=== PATIENT | female | born 1950 | race Caucasian/White ===

== ENCOUNTER → 2018-07-12 | Outpatient (CLI) | payer MEDICARE, MEDICAID | LOC: M ONCR 13:46 | DX: C54.1 Malignant neoplasm of endometrium (principal) | CPT/HCPCS: G0463 ==

== ENCOUNTER → 2018-07-19 | Outpatient (CLI) | payer MEDICARE, MEDICAID | LOC: M PLARAD 08:50 | DX: C54.1 Malignant neoplasm of endometrium (principal) | CPT/HCPCS: 78815 ==

== ENCOUNTER → 2018-08-08 | Outpatient (RCR) | payer MEDICARE, MEDICAID ==
--- NOTE | 2018-07-26 08:00 | RADONC ---
RADIATION ONCOLOGY PROGRESS NOTE DATE: 07/25/2018 CHART NUMBER: [id number] Ms. Blanton is presently at a dose of 1080 cGy to her pelvis and is tolerating treatments quite well at this point with no complaints related to her radiation therapy. She is having no breast or bone pain. REVIEW OF SYSTEMS: The patient's review of systems is noncontributory. She denies nausea, vomiting, fevers, chills, night sweats, diplopia, headaches, anxiety or depression, anorexia, weight loss, visual disturbances, chest pain, urinary or bowel difficulties, bone pain, or neurological problems. PHYSICAL EXAMINATION: The patient's skin is in good condition with no evidence of moist or dry desquamation. The remainder of her physical exam remains unchanged. Ms. Blanton is tolerating treatments quite well and radiation will continue as scheduled.
--- NOTE | 2018-08-05 12:37 | RADONC ---
RADIATION ONCOLOGY PROGRESS NOTE DATE: 08/03/2018 CHART #: [id number] Mrs. Blanton with a diagnosis of endometrial adenocarcinoma who is currently receiving local regional radiotherapy to the pelvis and her dose to date is 1800 cGy of a proposed 4500 cGy. She denies any nausea, vomiting, diarrhea, dysuria, hematuria or significant blood per rectum. Her energy level is such that she is able to maintain many day-to-day activities without any alteration of her lifestyle. She has some minimal skin irritation within the inguinal folds. The remainder of the physical examination is noncontributory as she denies any anxiety, depression, anorexia, weight loss, or visual disturbances. Physical examination reveals some focal hyperpigmentation with erythema within the inguinal fold areas. Although there is no evidence of moist desquamation at this time, it looks as though the skin is significantly irritated within the deep folds. The remainder of the physical examination is unchanged. I have instructed the patient to obtain some antifungal cream at her local pharmacy and should she develop any episodes of diarrhea in the future she might want to consider taking a small dose of Imodium to ameliorate any such symptoms. Treatments will continue.
--- NOTE | 2018-08-10 14:20 | RADONC ---
RADIATION ONCOLOGY PROGRESS NOTE DATE: 08/08/2018 CHART NUMBER: [id number] PROGRESS NOTE: Ms. Santos is presently at a dose of 2160 cGy to her pelvis and is tolerating treatments quite well at this point with no significant difficulties related to her radiation therapy other than some skin tenderness. REVIEW OF SYSTEMS: The patient's review of systems is positive for skin tenderness but is otherwise noncontributory. The patient's review of systems is noncontributory. Denies nausea, vomiting, fevers, chills, night sweats, diplopia, headaches, anxiety or depression, anorexia, weight loss, visual disturbances, chest pain, urinary or bowel difficulties, bone pain, or neurological problems. PHYSICAL EXAMINATION: The patient's skin shows some erythema and tanning present but overall is in generally good condition with no evidence of moist or dry desquamation. The remainder of her physical exam remains unchanged. Ms. Blanton is tolerating treatments quite well and radiation will continue as scheduled.
== END ==
LOC: M ONCR 07-12 15:00
PROVIDERS: ATTEND Radiology Radiation Oncology
DX: C54.1 Malignant neoplasm of endometrium (principal)

== ENCOUNTER 2018-08-29 13:59 | Outpatient (RCR) | payer MEDICARE, MEDICAID ==
--- NOTE | 2018-08-23 07:23 | RADONC ---
RADIATION ONCOLOGY PROGRESS NOTE DATE: 08/22/2018 CHART NUMBER: [id number] Ms. Blanton is presently at a dose of 3600 cGy to her pelvis and is tolerating treatments quite well at this point with no complaints related to her radiation therapy. She is having no significant urinary or bowel difficulties. No bone pain. The patient's review of systems is noncontributory. Denies nausea, vomiting, fevers, chills, night sweats, diplopia, headaches, anxiety or depression, anorexia, weight loss, visual disturbances, chest pain, urinary or bowel difficulties, bone pain, or neurological problems. PHYSICAL EXAMINATION The patient's skin is in good condition with no evidence of moist or dry desquamation. The remainder of her physical exam remains unchanged. Ms. Blanton is tolerating treatments quite well and radiation will continue as scheduled.
--- NOTE | 2018-08-29 16:26 | RADONC ---
RADIATION ONCOLOGY PROGRESS NOTE DATE: 08/29/2018 CHART NUMBER: [id number] PROGRESS NOTE: Ms. Blanton is presently a dose of 4320 cGy to her endometrium and is tolerating treatments quite well at this point with no complaints related to her radiation therapy. She is having no significant urinary or bowel difficulties. No bone pain. REVIEW OF SYSTEMS: The patient's review of systems is noncontributory. Denies nausea, vomiting, fevers, chills, night sweats, diplopia, headaches, anxiety or depression, anorexia, weight loss, visual disturbances, chest pain, urinary or bowel difficulties, bone pain, or neurological problems. PHYSICAL EXAMINATION: The patient's skin is in good condition with no evidence of moist or dry desquamation. The remainder of her physical exam remains unchanged. Ms. Blanton is tolerating treatments quite well. I will be evaluating her overall plan and radiation completion may be today. [facility]
--- NOTE | 2018-08-30 11:54 | RADONC ---
RADIATION ONCOLOGY TREATMENT SUMMARY DATE: 08/29/2018 CHART NUMBER: [id number]. DIAGNOSIS: Endometrial carcinoma. STAGE: Stage III, T3N0M0. ECOG PERFORMANCE STATUS: 0. TREATMENT SUMMARY: Ms. Blanton is a very pleasant 67-year-old white female with the diagnosis what appears to be a well-differentiated endometrial adenocarcinoma, stage III, T3N0M0, who has initiated external beam radiation therapy in [place] and presented to us for continuation of her radiation treatments closer to home. We treated the patient to her pelvis for a total dose of 4320 cGy delivered in 24 fractions of 180 cGy each over 42 elapsed days from 07/18/2018 through 08/29/2018. The patient's pelvis was treated on a linear accelerator utilizing a 15 MV photon beam via 3-D conformal technique with anterior, posterior, right and left lateral madrid. The patient had received three treatments of 180 cGy as a boost in [place] prior to initiation of treatment, bringing her to a total dose of 4860 cGy in 27 fractions of 180 cGy each. We had initially written a prescription for 25 treatments here, but after combining the treatment plans for the doses given at [facility] as well as our own, decided to stop the overall dose of 4860 cGy rather than going to 5040 cGy in order to maintain the small bowel within its tolerance limits. Ms. Blanton tolerated her treatments quite well with no difficulties related to her radiation therapy. The patient is scheduled to see me again in 1 month for further followup. She will also continue to be followed by her other physicians as well. cc: MD Renzo Whitehead MD Jocelyn Beane, MD Michael D. Mix, MD
== END 2018-09-08 ==
LOC: M ONCR 13:59
PROVIDERS: ATTEND Radiology Radiation Oncology
DX: C54.1 Malignant neoplasm of endometrium (principal)

== ENCOUNTER → 2018-10-05 | Outpatient (CLI) | payer MEDICARE, MEDICAID ==
--- NOTE | 2018-10-10 10:09 | RADONC ---
RADIATION ONCOLOGY FOLLOWUP NOTE DATE: 10/05/2018 CHART NUMBER: [id number]. DIAGNOSIS: Endometrial carcinoma. STAGE: Stage IV, [id number]. ECOG PERFORMANCE STATUS: 0. FOLLOWUP NOTE: Ms. Blanton is a very pleasant 67-year-old white female with the diagnosis of what appears to be a stage IV, [id number], well-differentiated endometrial adenocarcinoma, who is presenting to us today for routine followup visit 1 month post completion of palliative radiation therapy to her pelvis in order to alleviate bleeding and discomfort. The patient has done well since the completion of her radiation of her pelvic radiation and reports that she has had no further bleeding or discomfort. She also reports that she is being seen in Dr. Hart's office by Casandra Gruber, nurse practitioner for ENROLLED NURSE exams that will be scheduled every 3 months. The patient's review of systems is noncontributory. Denies nausea, vomiting, fevers, chills, night sweats, diplopia, headaches, anxiety or depression, anorexia, weight loss, visual disturbances, chest pain, urinary or bowel difficulties, bone pain, or neurological problems. PHYSICAL EXAMINATION: The patient is a well-developed, well-nourished female in no acute distress. HEENT exam is normocephalic, atraumatic. Extraocular movements are intact. There is no palpable cervical, supraclavicular, infraclavicular, axillary, or inguinal lymphadenopathy present. Lungs are clear to auscultation and percussion. Heart has a regular rate and rhythm. Abdomen is benign with no hepatosplenomegaly, masses, or tenderness. Breast examination reveals no masses or discharge bilaterally. Skeletal examination reveals no tenderness to pressure or percussion of the bony skeleton. Extremities reveal no clubbing, cyanosis, or edema. Neurologic exam is grossly intact, as is the remainder of the physical examination. ENROLLED NURSE examination was deferred. ASSESSMENT: Ms. Blanton was initially seen by me having started palliative radiation therapy in [place] for a large endometrial / cervical mass. She was deemed not to be a surgical candidate at that time by Dr. Tran. Initially, she was thought to have a stage III, T3N0M0 endometrial adenocarcinoma. There was discussion of palliative radiation therapy versus potentially definitive radiation therapy at that time. She was initially seen by me in 07/12/2018. On 07/19/2018 a PET/CT was done and did confirm a left parotid region hypermetabolic lymph node with SUV value 14.2. There were also several enlarged lymph nodes which were hypermetabolic in the abdomen, portocaval and periportal lymph node region. These were in addition to her large hypermetabolic pelvic mass. In light of this, clearly this case could no longer be considered definitive and we completed out palliative radiation therapy to the pelvis. The patient is now 4 weeks post completion of therapy, and I am placing her on our tumor board scheduled for discussion of where we should go from here. In addition, I am setting up the patient for a medical oncology consultation to see whether or not our medical oncologist thinks she may benefit from any further intervention. At this time, we appear to have a window of local control but unfortunately the amount of radiation was limited by normal structures. Indeed, we were limited by the small bowel dose. It was kept within its tolerance levels but no further radiation can be delivered safely. I have encouraged this patient to continue her followup with her other physicians, including Dr. Tran as well. I await the expert opinion of our medical oncologists see whether or not they can be of any assistance to this very pleasant and unfortunate woman. [facility]
== END ==
LOC: M ONCR 14:22
PROVIDERS: ATTEND Radiology Radiation Oncology
DX: C54.1 Malignant neoplasm of endometrium (principal)

== ENCOUNTER → 2018-10-26 | Outpatient (CLI) | payer MEDICARE, MEDICAID ==
[~2018-10-26] MED LIST: EZET10TA PO; FERR325T3 PO; GASTROGRAFIN SOLUTION 30ML (Q9963) As Ordered ONE; ISOVUE-370 76% 125ML VIAL (Q9967 PER ML) As Ordered ONE; TOPR25TA13 PO; VITA500T PO
--- NOTE | 2018-10-27 08:29 | REP ---
Clinical: Endometrial carcinoma for restaging. Technique: Axial contrast enhanced images from the thoracic inlet to the upper abdomen with coronal and sagittal re-formations using 100 ml Isovue 370 intravenous contrast material. Findings: Lung madrid demonstrate chronic age-related interstitial changes along with few scattered small calcified granulomata. No soft tissue nodules, mass or consolidation appreciated to suggest metastatic disease. No consolidation. No effusion. No pneumothorax. Tracheobronchial tree is patent. No significant adenopathy identified. Mediastinum demonstrates relatively normal thoracic aorta and heart/pericardium. No aortic aneurysm, cardiomegaly, or pericardial effusion. Surrounding musculoskeletal structures demonstrate age-related changes without focal osseous abnormality. Impression: 1. Chronic-appearing changes. 2. No evidence for acute mediastinal or pleuroparenchymal process. 3. No evidence for metastatic disease. Electronically Signed by Oscar Albright MD 10/27/2018 08:21 A
--- NOTE | 2018-10-27 08:38 | REP ---
Clinical: History of endometrial carcinoma for restaging. Technique: Axial contrast enhanced images from the lung bases to the pubic symphysis using oral (per protocol) and 100 ml Isovue 370 intravenous contrast material with coronal and sagittal re-formations. Comparison: 05/13/2018. Findings: Please refer to chest CT for lung base evaluation. Liver, spleen, pancreas, bilateral adrenal glands and kidneys are normal. Cholelithiasis noted without acute cholecystitis. Peripancreatic and chris hepatis lymph nodes are identified and measure up to 2.7 cm diameter and appear relatively unchanged. The enteric system is without obstruction or acute inflammatory process. Scattered diverticula noted without acute diverticulitis. Pelvis demonstrates collapsed bladder. The uterus appears heterogeneous and the previously identified cervical/lower uterine segment fluid/mass has considerably decreased in size currently measuring approximately 3.8 cm maximal diameter and previously measuring approximately 7.6 cm maximal diameter at the same level. No pelvic fluid or ascites. No obvious, significant retroperitoneal or pelvic adenopathy is appreciated. No free air. The abdominal aorta and vasculature grossly normal. Osseous structures demonstrate age-related degenerative changes without focal osseous abnormality. Impression: 1. Previously identified mass/fluid collection involving the lower uterine segment and cervix is considerably decreased in size. 2. Cholelithiasis. 3. Peripancreatic and chris hepatis lymph nodes up to 2.7 cm remains stable. 4. No further acute abdominopelvic pathology appreciated. Specifically, no focal mass lesion, focal inflammatory stranding. Electronically Signed by Oscar Albright MD 10/27/2018 08:29 A
== END ==
LOC: M RAD 15:32
PROVIDERS: ATTEND Internal Medicine Medical Oncology
DX: C54.1 Malignant neoplasm of endometrium (principal); K80.20 Calculus of gallbladder without cholecystitis without obstruction
CPT/HCPCS: 71260; 74177; Q9963; Q9967

== ENCOUNTER → 2018-11-14 | Outpatient (CLI) | payer MEDICARE, MEDICAID ==
[~2018-11-14] MED LIST changes: -GASTROGRAFIN SOLUTION 30ML (Q9963) As Ordered ONE; -ISOVUE-370 76% 125ML VIAL (Q9967 PER ML) As Ordered ONE; +LIDOCAINE 1% MDV 20ML VIAL As Ordered ONE; +ONDA-196 PO; +PROC10TA4 PO; +TOPR25TA PO; -TOPR25TA13 PO; +VITA200016 PO
--- NOTE | 2018-11-14 17:34 | REP ---
ULTRASOUND-GUIDED LEFT NECK LYMPH NODE BIOPSY The procedure was performed under the direct supervision of Dr. Winkler. The patient has a history of a markedly hypermetabolic lymph node in the left neck along the anterior inferior edge of the parotid gland seen on a previous PET scan dated 07/19/2018. The risks and benefits of the procedure were explained to the patient and informed consent was obtained. The left neck lymph node was localized using ultrasound guidance. The skin was prepped and draped in a sterile fashion. 1% lidocaine was used as a local anesthetic. Using ultrasound guidance a 19/20 gauge coaxial needle biopsy system was inserted and advanced into the lymph node. Six core biopsy samples were obtained and sent to lab. The patient tolerated the procedure well and there were no immediate complications. After the appropriate amount of monitored convalescence the patient was discharged from the department. Reviewed by TOMMY Mary 11/14/2018 04:21 P Electronically Signed by Jake Winkler MD 11/14/2018 05:25 P
--- NOTE | 2018-11-15 13:39 | REP ---
Clinical: Hypermetabolic lymph node by recent PET CT. Technique: Real time courtney scale and color evaluation using linear high frequency transducer. Findings: A hypoechoic, enlarged presumed lymph node is identified in the left cervical chain measuring 1.7 x 1.4 x 2.3 cm. The remainder of the bilateral jugular and cervical chain lymph nodes are normal in size measuring up to 8 x 4 x 7 mm in the left and 10 x 7 x 10 mm on the right. Impression: Solitary pathologic appearing left cervical chain lymph node. Electronically Signed by Oscar Albright MD 11/15/2018 01:30 P
== END ==
LOC: M RADPRO 09:52
PROVIDERS: ATTEND Internal Medicine Medical Oncology
DX: R59.0 Localized enlarged lymph nodes (principal)

== ENCOUNTER → 2019-01-16 | Outpatient (CLI) | payer MEDICARE, MEDICAID ==
[~2019-01-16] MED LIST changes: +AMOX875T PO; +BUPIVACAINE HCL 0.5% 10 ML VIAL As Ordered ONE; +CLEO300C2 PO; -EZET10TA PO; +EZET10TA21 PO; -LIDOCAINE 1% MDV 20ML VIAL As Ordered ONE; +LIDOCAINE 2% MDV 20 ML VIAL As Ordered ONE; +ceFAZolin 1GM INJ (J0690 PER 500MG) As Ordered ONE
--- NOTE | 2019-01-18 11:58 | ROOPDOC ---
[facility] Report Of Operation Report of Operation DATE OF PROCEDURE: 01/16/2019 PREOPERATIVE DIAGNOSIS: Endometrial cancer requiring central venous access for chemotherapy. POSTOPERATIVE DIAGNOSIS: Endometrial cancer requiring central venous access for chemotherapy. PROCEDURE: Ultrasound guided right internal jugular vein cannulation. Fluoroscopic guided right internal jugular vein tunneled central venous catheter with subcutaneous port placement with placement of a power injectable [employer] [place] Power Port with 26 centimeter length catheter. SURGEON: Dr. Patty Wilson M.D. LEAD TINNER: Fouzia Kirkpatrick ANESTHESIA: Local with 20 mL of 2% lidocaine mixed with 0.5% Marcaine. ANTIBIOTICS: 2 g of Ancef FLUOROSCOPY TIME: 0.4 minutes. CONTRAST: None. ESTIMATED BLOOD LOSS: 15 mL. IV FLUID: 90 mL. COMPLICATIONS: None. DRAINS: None. SPECIMENS: None. IMPLANTS: Right internal jugular vein tunneled central venous catheter with subcutaneous port placement using a [employer] [place] Power Port which is power injectable. INDICATION: Patient is a 68-year-old female with endometrial cancer who requires central venous access for chemotherapy instillation. Patient will undergo placement of a right tunneled central venous catheter with subcutaneous port. Procedure was described and explained to the patient in detail including drawing of pictures showing the procedure and anatomy associated with insertion of the tunneled central venous catheter was subcutaneous port. Risks, benefits, and alternative treatment options were discussed with the patient. Alternative treatment options included, but were not limited to, no intervention. Benefits included, but were not limited to, access for chemotherapy infusion centrally, avoiding recurrent venous cannulations , IV placements and sclerosis of peripheral veins. Risks included, but were not limited to, infection, bleeding, pneumothorax, hemothorax, possible need for further open surgical intervention, renal failure requiring hemodialysis, failure of the tunneled central venous catheter with subcutaneous port to function requiring evaluation, revision and/or replacement, adverse and/or allergic reaction to the sedation medications and/or local anesthetics, anesthetic and sedation complication, possible need for transfusion of blood products, allergic reaction and/or complication from the prepping and draping materials, bruising, scarring, cerebrovascular accident, myocardial infarction, pulmonary embolus, deep venous thrombosis, poor satisfaction, poor results, poor outcome, loss of limb and loss of life. Risks of not performing the port insertion included but were not limited to inability to gain access for chemotherapy, inability to gain access for blood draws and laboratory evaluation, sclerosis and thrombophlebitis of peripheral veins and pain associated with continued peripheral cannulations. Patient's q uestions were answered. Patient voices understanding of these risks, benefits, and alternative treatment options. Patient voices acceptance of the risks associated with placement of a central venous tunneled catheter with subcutaneous port placement and consents to proceed with tunneled central venous catheter with subcutaneous port placement. No guarantees or promises were made to the patient regarding the results or outcome of the procedure. DESCRIPTION OF PROCEDURE: Patient was taken to the angiography suite, placed supine on the angiography room table, and prepped and draped in a standard surgical fashion. A time-out was conducted by myself and the team members involved in the procedure, confirming the correct procedure, patient, and laterality. Ultrasound was then used to evaluate the right internal jugular vein, which was noted to be easily compressible, widely patent, and free of thrombus. Ultrasound was then used to guide cannulation of the right internal jugular vein with a micropuncture needle with real-time concurrent visualization of the entry of the needle into the right internal jugular vein with a hardcopy image preserved. The skin overlying the right internal jugular vein was anesthetized with 2% lidocaine mixed with 0.5% Marcaine prior to cannulation. Once the right internal jugular vein was cannulated, the micropuncture wire was advanced through the micropuncture needle, which was up-sized to a micropuncture sheath. A J wire was advanced through the micropuncture sheath. The right internal jugular vein was then dilated under fluoroscopic guidance, and a #8-[place] introducer sheath was positioned through the right internal jugular vein into the superior vena cava. The wire was removed, and the #8-[place] single lumen catheter, which had been tunneled from a puncture wound in the right chest and brought out at the puncture wound at the right internal jugular vein entry site, was advanced through the introducer sheath under fluoroscopic guidance. The introducer sheath was then removed, and the catheter was positioned with the tip in the superior vena cava/right atrial junction under fluoroscopic guidance. The catheter was cut to a length of 26 cm and attached to the port. A pocket was created in the right chest after anesthetizing the overlying tissue with 2% lidocaine mixed with 0.5% Marcaine. The port was placed in the pocket and cannulated using an access needle. The port was noted to aspirate and flush easily and then was flushed with heparinized saline. The incision in the chest was closed using # 4-0 Monocryl suture in inverted interrupted fashion. The puncture wound in the right neck was closed using a #4-0 Monocryl in inverted interrupted fashion. Steri-Strips and dressings were applied. Patient tolerated the procedure well. All instrument, sponge, and needle counts were correct at the end of the case. There were no complications. Dr. Wilson was present for and directed the entire case. Patient was transferred to the recovery area and subsequently discharged in stable condition. The tunneled central venous catheter with subcutaneous port is stable for use for access. RADIOLOGIC SUPERVISION AND INTERPRETATION: The ultrasound showed the right internal jugular vein to be easily compressible, widely patent, and free of thrombus. Ultrasound was used to guide cannulation of the right internal jugular vein with real-time concurrent visualization of the entry of the needle into the right internal jugular vein. The right internal jugular vein was then dilated under fluoroscopic guidance with a #8-[place] introducer sheath placed under fluoroscopic guidance. The 8 [place] single lumen catheter was advanced through the introducer sheath positioned with the tip in the superior vena/right atrial junction using fluoroscopic guidance with final fluoroscopic image showing the catheter and port to be in good position and good alignment with the tip in the superior vena cava/right atrial junction with no pneumo- or hemothorax noted. The tunneled central venous catheter with subcutaneous port is stable for use. Jonathon Wilson MD Jan 18, 2019 11:58
== END | disposition home or self-care (01) ==
LOC: M IRPRO 09:02
PROVIDERS: ATTEND Nurse Practitioner Family
DX: C54.1 Malignant neoplasm of endometrium (principal)
CPT/HCPCS: 36561; 76937; 77001; C1788; C1894; J0690

== ENCOUNTER → 2019-04-12 | Outpatient (CLI) | payer MEDICARE, MEDICAID ==
[~2019-04-12] MED LIST changes: -BUPIVACAINE HCL 0.5% 10 ML VIAL As Ordered ONE; +EMLA CREAM 5GM (LIDOCAINE/PRILOCAINE) As Ordered ONE; +GASTROGRAFIN SOLUTION 30ML (Q9963) As Ordered ONE; +ISOVUE-370 76% 100ML VIAL (Q9967) As Ordered ONE; -LIDOCAINE 2% MDV 20 ML VIAL As Ordered ONE; -ceFAZolin 1GM INJ (J0690 PER 500MG) As Ordered ONE
--- NOTE | 2019-04-12 10:32 | REP ---
Clinical: Endometrial cancer for restaging. Technique: Axial contrast enhanced images from the thoracic inlet to the upper abdomen with coronal and sagittal re-formations using 100 ml Isovue 370 intravenous contrast material. Comparison: 10/26/2018. Findings: Lung [place] demonstrate mild chronic age-related interstitial changes along with left upper lobe calcified granuloma. No consolidation, effusion, significant nodule or mass lesion. No adenopathy. Tracheobronchial tree is patent. The mediastinum demonstrates a few calcified mediastinal / left hilar lymph nodes. Thoracic aorta without aneurysm or dissection. No cardiomegaly. No pericardial effusion. Musculoskeletal structures demonstrate age-related changes without focal osseous abnormality. Impression: Mild chronic changes. No evidence for acute mediastinal or pleuroparenchymal process. No evidence for metastatic disease. Electronically Signed by Oscar Albright MD 04/12/2019 10:24 A
--- NOTE | 2019-04-12 10:39 | REP ---
Clinical: Endometrial carcinoma for restaging. Technique: Axial contrast enhanced images from the lung bases to the pubic symphysis using oral (per protocol) and 100 ml Isovue 370 intravenous contrast material with coronal and sagittal re-formations. Comparison: 10/26/2018. Findings: Liver, spleen, pancreas, bilateral adrenal glands and kidneys are normal. Cholelithiasis noted without evidence for acute cholecystitis. Prominent peripancreatic and chris hepatis lymph nodes again measuring up to approximately 2.4 cm remains stable. The enteric system is without obstruction or acute inflammatory process. Pelvis demonstrates normal bladder. Somewhat heterogeneous appearance to the fundal portion of the uterus and adjacent adnexa is appreciated but appears relatively similar to prior examination. Few subcentimeter pelvic sidewall lymph nodes are again identified and unchanged. No ascites. No new intraperitoneal or retroperitoneal adenopathy. No free air. Abdominal aorta and vasculature without aneurysm or dissection. No obvious mass lesion or metastases identified. Musculoskeletal structures demonstrate degenerative changes without focal abnormality. Impression: 1. Cholelithiasis. 2. Mildly prominent heterogeneous appearance to the fundal portion of the uterus and adjacent adnexa similar to prior examination is nonspecific. Pelvic ultrasound may be warranted for follow-up. 3. No ascites, new adenopathy, focal inflammatory changes, or evidence for mass/metastatic disease. Electronically Signed by Oscar Albright MD 04/12/2019 10:30 A
== END ==
LOC: M RAD 08:26
PROVIDERS: ATTEND Nurse Practitioner Family
DX: C54.1 Malignant neoplasm of endometrium (principal); J84.10 Pulmonary fibrosis, unspecified; K80.20 Calculus of gallbladder without cholecystitis without obstruction
CPT/HCPCS: 71260; 74177; Q9963; Q9967

== ENCOUNTER 2019-04-17 07:49 | Outpatient (RCR) | payer MEDICARE, MEDICAID ==
[2018-10-18 14:28] VITALS: BP 123/85
[2018-10-18 15:27] LABS: HEMATOCRIT 46.5 % (36.0-47.0); HEMOGLOBIN 14.7 g/dl (12.0-15.5); LYMPH % 12.3 % (24.0-44.0); MEAN CORPUSCULAR HGB CONC 31.6 g/dl (32.0-36.5); MEAN CORPUSCULAR VOLUME 94.8 fl (80.0-96.0); NEUTROPHILS # 7.8 10^3/uL (1.8-7.7); NEUTROPHILS % 79.6 % (36.0-66.0); RED BLOOD COUNT 4.9 10^6/uL (4.00-5.40); WHITE BLOOD COUNT 9.8 10^3/uL (4.0-10.0)
[2018-10-18 15:55] LABS: ALBUMIN 4.1 GM/DL (3.5-5.2); BLOOD UREA NITROGEN 17 MG/DL (6-20); CALCIUM LEVEL 9.8 MG/DL (8.5-10.2); CARBON DIOXIDE LEVEL 29 MEQ/L (23-31); CHLORIDE LEVEL 101 MMOL/L (98-107); CREATININE FOR GFR 0.92 MG/DL (0.60-1.10); GLOMERULAR FILTRATION RATE > 60.0 (>45); GLUCOSE, FASTING 113 MG/DL (70-105); POTASSIUM SERUM 4.8 MMOL/L (3.5-5.1); SODIUM LEVEL 137 MMOL/L (136-145); TOTAL PROTEIN 7.5 GM/DL (6.4-8.3)
--- NOTE | 2018-10-23 10:11 | MEDONC ---
MEDICAL ONCOLOGY INITIAL VISIT DATE OF SERVICE: 10/18/2018 DIAGNOSIS: Mitra Santos is a 67-year-old woman with clinically advanced well differentiated endometrial adenocarcinoma, now status post definitive local radiation. Deemed not a surgical candidate. HISTORY OF PRESENT ILLNESS: Mitra at baseline is retired, never smoker, woman, with [id number] medical problems, who presented to the [facility] Room in early May 2018 with 2 weeks of vaginal bleeding and severe anemia requiring 2-unit red blood cell transfusion. At that time, clinical exam revealed a large fungating cervical mass, and abdomen and pelvis CT showed a 7.7 x 7 x 6.3 cm bulky cervical mass with borderline para-aortic lymph nodes up to 1.3 cm and a 1.5 sinus meter periportal node. She was transferred to [facility], where she was evaluated with CT abdomen and pelvis finding the above; chest CT was negative. She underwent exam under anesthesia and biopsy, which showed well differentiated adenocarcinoma most consistent with endometrial origin. Biopsies involves both cervix and vagina. ER and FL were positive. She was discharged home after EUF and referred outpatient to Rei Tran MD, who she saw 07/04/2018. Due to severe bleeding after exam, she was admitted to [facility]. There it was recommended that she undergo palliative/therapeutic radiation. This was started at [place] under Dr. Gastelum, and her radiation care was transferred to Dr. Conroy. 07/19/2019 PET showed a 7.5 cm cervical mass with SUV22; portacaval/periaortic lymph nodes with SUV borderline at 3; in a left parotid gland 2.2-cm mass/nodule SUV14. She had been deemed not a surgical candidate by Dr. Tran; and between 07/18/2018 and 08/29/2018 completed 4860 cGy radiation. Today, Mitra is unaccompanied. She says the bleeding has largely stopped since radiation. She denies pain. She has occasional slight bleeding in a pad. She has no lower abdominal pain. She denies unintended weight loss, loss of appetite, leg cramping, swelling, fevers, chills, shortness of breath. PAST MEDICAL HISTORY: Type 2 diabetes, not currently on active medication. Hypertension. Vitamin D deficiency. PAST SURGICAL HISTORY: EUF cervical and vaginal biopsies as described. FAMILY HISTORY: Is negative for malignancies except her father who had laryngeal cancer. No colon or endometrial cancer in the family. SOCIAL HISTORY: The patient is a never smoker. Denies alcohol. Is retired from working at [employer]. She grew up and lives in [place] with her brother. ALLERGIES: No known drug allergies. MEDICATIONS: Ascorbic acid 500 mg b.i.d., ezetimibe 10 mg daily, ferrous sulfate 325 mg daily, metoprolol 25 mg daily. Twelve-system written review is positive only for occasional urinary incontinence. Remainder of twelve-system review negative. PHYSICAL EXAMINATION: The patient is an overweight, somewhat ill kempt, very pleasant woman. Minimal detail when asked medical history questions. Understands that she has cancer and that it was of uterine origin. Did not understand stage. Vital signs: Weight 119 kg, temperature 97.9, blood pressure 123/85, heart rate 82, respiratory 18, O2 sat 93%. Respiratory: Clear lungs to auscultation bilaterally anteriorly and posteriorly. No wheezes, no rales. Cardiac: S1, S2, regular rate and rhythm. No murmurs or gallops. Abdomen: Soft, nondistended, nontender. Pannus present beneath which in the low pelvis, there is hyperpigmentation and shiny skin excoriation without bleeding or desquamation. No hepatomegaly. No splenomegaly. No palpable abdominal or pelvic mass. Extremities: Trace pedal edema, symmetric bilaterally. Musculoskeletal: Kyphosis present. No vertebral tenderness to percussion. exam was deferred today. Lymph nodes: No palpable submandibular, cervical, supraclavicular, inguinal, or axillary adenopathy bilaterally (the parotid area was not palpated). LABS: WBC 9.8, hemoglobin 14.7, hematocrit 46, platelets 287, MCV 94. CMP pending. CA-125 pending. IMPRESSION: Mitra Blanton is a 67-year-old woman with well differentiated endometrial adenocarcinoma, clinically stage III, T3N0 versus N2, M0, now status post definitive pelvic radiation to dominant 7-cm cervical mass, to palliate bleeding and offer definitive local treatment. She was deemed not a surgical candidate. ECOG performance status is 1-2. Clinical staging is somewhat in doubt, given periaortic lymph nodes of borderline SUV on PET and measuring about 1.5 cm; there is a left parotid very hypermetabolic focus, but whether this is a metastatic endometrial carcinoma focus is very unclear, and this has not been biopsied. There is portocaval upper abdominal lymph nodes again borderline in terms of size and SUV on PET. Her adenocarcinoma is by definition poor risk, as it is nonsquamous, G1 because well differentiated. MMR status not yet established. Today, Mitra was very quiet; and having a detailed discussion with her about treatment options, staging, and so forth was difficult at best. She is on schedule to be discussed this week at tumor board, and this is appropriate given it is unclear whether treatment is definitive intent or palliative intent. PLAN: 1. Obtain mismatch repair enzyme testing on the cervical and vaginal path specimens from [facility] last May. 2. Though not discuss with Mitra today, I will recommend ultrasound-guided biopsy of the left parotid hypermetabolic mass. 3. Treatment options include endocrine therapy; for example, with megestrol alternating with tamoxifen as a low-intensity approach versus carboplatin/paclitaxel. 4. Restaging CT chest, abdomen and pelvis to help sort out and consolidate staging information and assess response to radiation. 5. I will see Mitra back after CTs. At that point, arrange of the parotid biopsy and make recommendations about treatment. TIME STATEMENT: 65 minutes spent [id number] with the patient, more than 50% involving counseling, reviewing the findings so far, discussing treatment options including endocrine therapy, chemotherapy, and explaining staging, and curative intent treatment versus palliative intent. Electronically Signed by Sofiya Hernandez MD 10/24/2018 08:39 A DD: Sofiya Hernandez MD 10/18/2018 03:46 P DT: aml 10/19/2018 11:52 A CC: MD Harsha Lucas MD Michael D. Mix, MD
[2018-11-03 10:11] VITALS: BP 124/79
--- NOTE | 2018-11-08 10:43 | MEDONC ---
MEDICAL ONCOLOGY FOLLOWUP DATE OF SERVICE: 11/03/2018 DIAGNOSES: 1. A 67-year-old female with clinical stage III, T3N2M0 G1, ER/OR strongly positive, dMMR not known, well differentiated endometrial adenocarcinoma with high-risk features, diagnosed May 2018. Status post primary pelvic radiation after being deemed nonsurgical candidate. 2. Left upper cervical/parotid lymph node, 2.2 cm, hypermetabolic on 07/19/2018 PET, unclear whether endometrial cancer metastasis versus second primary versus other. TREATMENT HISTORY: EUF May 2015, endometrial adenocarcinoma diagnosis, complicated by bleeding; later outpatient pelvic exam again complicated by bleeding. The patient deemed nonsurgical candidate by Rei Tran MD. Pelvic radiation 4860 cGy 07/18/2018 - 08/29/2018. INTERVAL HISTORY: Mitra is here today unaccompanied by her brother, with whom she lives. Restaging chest, abdomen and pelvis CT 10/27/2018 showed the previous 7.6 cm pelvic/cervical area mass, now measures 3.8 cm, a combination mass and fluid. No ascites or pelvic fluid present, no free air; stable peripancreatic and chris hepatis lymphadenopathy measuring up to 2.7 cm (and borderline hypermetabolic on July PET); no intrathoracic metastatic foci. Mitra reports feeling overall well. She has no abdominal pain, early satiety, nausea, vomiting. No vaginal bleeding. She has occasional pain with urination but getting better. No fevers, chills, shortness of breath, leg cramping, or swelling. MMR testing has not yet been done or results received. I reviewed with Mitra treatment options, including endocrine therapy versus combination carboplatin/Taxol as we discussed on her first visit. I also recommended ultrasound-guided biopsy of the left parotid mass to determine if this is a distant metastasis. The lymph nodes about the liver and pancreas remain indeterminate in terms of uptake and are not enlarging on serial CTs. IMPRESSION: Clinical stage III, T3N2M0 G1 well differentiated endometrial adenocarcinoma, ER positive OR positive, dMMR not known, status post primary radiation after being deemed nonsurgical candidate. No further vaginal bleeding. Clinically well. Major response on restaging scans. No evidence of new metastatic findings. Persistent hypermetabolic left upper cervical/parotid lymph node with high SUV suspicious for second primary versus endometrial metastatic focus. dMMR testing requested. No results yet. ECOG performance status 0/1. PLAN: 1. Ultrasound-guided left cervical node biopsy. 2. Repeat request for MMR testing on [facility] pathology of 05/13/2018, [id number]. 3. Return to clinic 1 week after biopsy to discuss treatment planning. Options include first-line endocrine therapy with megestrol alternating with tamoxifen versus first-line carboplatin/paclitaxel for up to seven cycles on a q. 21. TIME STATEMENT: 20 minutes spent [id number] with the patient, more than 50% involved in counseling regarding results, discussing parotid biopsy, and provisionally discussing treatment planning. Electronically Signed by Sofiya Hernandez MD 11/15/2018 04:22 P DD: Sofiya Hernandez MD 11/05/2018 11:51 A DT: [email or web address] 11/08/2018 10:25 A CC: MD Bing Whitehead MD Daniel DeBlasio, MD Kathy Der, SECTION LEADER SCREEN PRINTINGJulia Gastelum MD
[2018-11-16 13:18] VITALS: BP 114/75
--- NOTE | 2018-11-17 09:15 | MEDONC ---
MEDICAL ONCOLOGY FOLLOWUP: DATE OF SERVICE: 11/16/2018 DIAGNOSIS: 1. Clinical stage III, [id number], ER / MI strongly positive, dmmr not known, well differentiated endometrial adenocarcinoma with high-risk features diagnosed May 2018. Status post primary pelvic radiation after being deemed nonsurgical candidate. 2. Left upper cervical / parotid lymph node hypermetabolic on 07/19/2018 PET now status post biopsy showing benign [place]'s tumor. The patient is essentially asymptomatic from this. TREATMENT HISTORY: EUS May 2015 complicated by bleeding biopsy positive for endometrial adenocarcinoma. Later outpatient pelvic exam complicated by bleeding requiring hospitalization. The patient deemed nonsurgical candidate. Pelvic radiation 48 60 centigray 07/18/2018 - 08/29/2018. 07/19/2018 pet with mildly prominent portocaval and periportal lymph nodes borderline hypermetabolic maximum SUV3 and known left parotid hypermetabolic mass biopsy positive for [place]'s tumor. INTERVAL HISTORY: Biopsy of the left parotid gland mass is positive for tissue containing abundant onco site morphologically consistent with a solid [place]'s tumor. No metastatic ovarian carcinoma noted (SIC). MMR status not yet obtained on [facility]. Unfortunately I confirmed this with the [facility] department this morning and have re-requested MMR testing on either of the two established specimens. I spoke with Mitra today about adjuvant treatment for her high risk endometrial cancer. Though strongly ER and MI positive because of high-risk features including adenocarcinoma as her histology locally advanced disease, I am recommending combination carboplatin / Taxol every 21 days for six cycles. I reviewed risks, benefits, side effects and schedule including but not limited to alopecia, on peripheral neuropathy, myelosuppression with attendant risks for anemia and fatigue, possible need for blood transfusion, thrombocytopenia and possible risk of bleeding, new leukopenia and possible risk of increased risk of infection. I recommended support with primary G-CSF based on her age and prior radiation. I also discussed fatigue as a significant risk of treatment, nausea, vomiting, infusion reaction to paclitaxel. After answering all of Mitra's questions she signed written informed consent and we formulated together the following plan. IMPRESSION: Clinical stage III, T3N0 versus N2, M0 well differentiated endometrial adenocarcinoma, ER / MI positive, dmmr unknown, with borderline hypermetabolic portocaval adenopathy stable on postsurgical PET. Nonsurgical candidate. ECOG performance status zero. PLAN: 1. Obtain MMR status on existing pathology. 2. Return to clinic to begin carboplatin / paclitaxel, carboplatin AUC 6, paclitaxel 175 mg per meter squared every 21 days planned for six cycles with primary G-CSF support. 3. I will see iMtra on day 1 cycle treatment barring clinical complications of cycle one with CBC, stat CMP and CA-125 each day one. Clinical exam on office visit days. TIME STATEMENT: 25 minutes spent [id number] with the patient more than 50% involving counseling regarding [place]'s tumor results with a plan for observation of this, reviewing adjuvant chemotherapy. RECOMMENDATIONS: Risks, benefits and side effects and obtaining written informed consent. Electronically Signed by Sofiya Hernandez MD 11/17/2018 06:58 P DD: Sofiya Hernandez MD 11/16/2018 04:49 P DT: lea 11/17/2018 08:37 A CC: MD Bing Whitehead MD Daniel DeBlasio, MD Kathy Der, R[employer] PLATE W[employer]ER Gamaliel Gastelum MD
[2018-11-22 08:14] VITALS: BP 130/84
[2018-11-22 08:24] LABS: HEMATOCRIT 44.4 % (36.0-47.0); HEMOGLOBIN 14.5 g/dl (12.0-15.5); LYMPH % 13.9 % (24.0-44.0); MEAN CORPUSCULAR HEMOGLOBIN 31.5 pg (27.0-33.0); MEAN CORPUSCULAR HGB CONC 32.7 g/dl (32.0-36.5); MEAN CORPUSCULAR VOLUME 96.4 fl (80.0-96.0); NEUTROPHILS # 5.8 10^3/uL (1.8-7.7); NEUTROPHILS % 78.9 % (36.0-66.0); RED BLOOD COUNT 4.61 10^6/uL (4.00-5.40); WHITE BLOOD COUNT 7.3 10^3/uL (4.0-10.0)
[2018-11-22 09:10] LABS: ALBUMIN 3.6 GM/DL (3.5-5.2); BLOOD UREA NITROGEN 16 MG/DL (6-20); CALCIUM LEVEL 9.6 MG/DL (8.5-10.2); CARBON DIOXIDE LEVEL 30 MEQ/L (23-31); CHLORIDE LEVEL 101 MMOL/L (98-107); CREATININE FOR GFR 0.95 MG/DL (0.60-1.10); GLOMERULAR FILTRATION RATE > 60.0 (>45); GLUCOSE, FASTING 128 MG/DL (70-105); POTASSIUM SERUM 4.7 MMOL/L (3.5-5.1); SODIUM LEVEL 136 MMOL/L (135-145); TOTAL PROTEIN 7.2 GM/DL (6.4-8.3)
[2018-12-13 08:09] LABS: HEMATOCRIT 41.8 % (36.0-47.0); HEMOGLOBIN 13.3 g/dl (12.0-15.5); LYMPH % 13.7 % (24.0-44.0); MEAN CORPUSCULAR HEMOGLOBIN 31.1 pg (27.0-33.0); MEAN CORPUSCULAR HGB CONC 31.8 g/dl (32.0-36.5); MEAN CORPUSCULAR VOLUME 97.9 fl (80.0-96.0); NEUTROPHILS # 4.8 10^3/uL (1.8-7.7); NEUTROPHILS % 78.4 % (36.0-66.0); RED BLOOD COUNT 4.27 10^6/uL (4.00-5.40); WHITE BLOOD COUNT 6.1 10^3/uL (4.0-10.0)
[2018-12-13 08:10] VITALS: BP 111/72
[2018-12-13 08:28] LABS: ALBUMIN 3.6 GM/DL (3.5-5.2); CALCIUM LEVEL 9.4 MG/DL (8.5-10.2); CREATININE FOR GFR 1.02 MG/DL (0.60-1.10); GLOMERULAR FILTRATION RATE 57.9 (>45); POTASSIUM SERUM 4.8 MMOL/L (3.5-5.1); TOTAL PROTEIN 6.8 GM/DL (6.4-8.3)
[2019-01-03 08:27] VITALS: BP 140/80
[2019-01-03 08:46] LABS: ALBUMIN 3.7 GM/DL (3.5-5.2); BLOOD UREA NITROGEN 17 MG/DL (6-20); CALCIUM LEVEL 9.4 MG/DL (8.5-10.2); CARBON DIOXIDE LEVEL 27 MEQ/L (23-31); CHLORIDE LEVEL 107 MMOL/L (98-107); CREATININE FOR GFR 0.91 MG/DL (0.60-1.10); GLOMERULAR FILTRATION RATE > 60.0 (>45); GLUCOSE, FASTING 153 MG/DL (70-105); POTASSIUM SERUM 4.8 MMOL/L (3.5-5.1); SODIUM LEVEL 141 MMOL/L (135-145); TOTAL PROTEIN 6.6 GM/DL (6.4-8.3)
[2019-01-03 08:49] LABS: HEMATOCRIT 41.1 % (36.0-47.0); HEMOGLOBIN 13.3 g/dl (12.0-15.5); LYMPH % 14.9 % (24.0-44.0); MEAN CORPUSCULAR HEMOGLOBIN 32.1 pg (27.0-33.0); MEAN CORPUSCULAR HGB CONC 32.4 g/dl (32.0-36.5); MEAN CORPUSCULAR VOLUME 99.2 fl (80.0-96.0); NEUTROPHILS # 3.8 10^3/uL (1.8-7.7); NEUTROPHILS % 76.4 % (36.0-66.0); RED BLOOD COUNT 4.14 10^6/uL (4.00-5.40)
[2019-01-03 09:47] LABS: PARTIAL THROMBOPLASTIN TIME 29.3 SECONDS (25.4-37.6)
[2019-01-03 09:51] LABS: INR 0.96; PROTHROMBIN TIME 12.9 SECONDS (12.1-14.4)
--- NOTE | 2019-01-03 10:16 | MEDONC ---
UNSCHEDULED FOLLOWUP VISIT DATE OF SERVICE: 01/03/2019 DIAGNOSES: 1. Clinical stage III, [id number], ER-DE strongly positive, MMR "no loss of nuclear expression of MMR proteins": Low probability of microsatellite instability - (MSI-H), well differentiated endometrial adenocarcinoma with high-risk features diagnosed May 2018. Status post primary pelvic radiation after being deemed nonsurgical candidate. 2. Left upper cervical/parotid lymph node hypermetabolic uptake on 07/19/2018 PET now status post biopsy showing benign tumor. The patient is essentially asymptomatic from this. TREATMENT HISTORY: EUS May 2015 complicated by bleeding biopsy positive for endometrial adenocarcinoma. Later outpatient pelvic exam complicated by bleeding requiring hospitalization. The patient being nonsurgical candidate. Pelvic radiation 4860 cGy 07/18/2018 through 08/29/2018. 07/19/2018 PET with mildly prominent portal caval and jane portal lymph nodes borderline hypermetabolic maximum SUV 3 and known left carotid hypermetabolic mass biopsy positive for [place]'s. INTERVAL HISTORY: Mitra presents today for cycle 3 day 1 of chemotherapy utilizing carboplatin and paclitaxel. I was asked to see Mitra by her chemotherapy nurse for evaluation of an approximate 7 cm left upper extremity ? abscess/area of cellulitis which is raised, hard and warm to tactile touch. Mitra indicated that this started to develop 2-3 days after her second cycle of chemotherapy and at the previous chemotherapy IV site. She denies any systemic signs or symptoms of infection. No fevers or chills. She has been applying topical antibiotic cream without any significant benefit. PHYSICAL EXAMINATION: Vital signs: Today weight is 116.7 kg, temperature 97.5, pulse 112, respirations 18, BP 140/80, oxygen saturation 98% at rest on room air. Evaluation of the dorsum of the upper left extremity reveals an approximate 7 cm, raised, hard erythematous nontender abscess without any drainage. No other suspicious rashes or lesions. LABORATORY DATA: WBC 5.0, ANC 3.8, RBC 4.14, H/H 13.3, 41.1, platelets 266. Chemistries are unremarkable with the exception of a nonfasting glucose of 153. A current CA-125 antigen is pending. IMPRESSION: Mitra is here today for cycle 3 day 1 of chemotherapy utilizing carboplatin and paclitaxel for a clinical stage III, [id number], ER-DE strongly positive, well differentiated endometrial adenocarcinoma with high-risk features. MMR status as above. Mitra presents with findings of a left upper extremity dorsum of the arm abscess at her previous chemotherapy site. No systemic signs or symptoms of infection. PLAN: 1. Hold cycle 1 day 3 chemotherapy today. 2. The patient will start amoxicillin 875 mg one p.o. b.i.d. x7 days. 3. The patient was instructed to apply warm compresses to the affected area for 20 minutes three times per day. 4. Return in 1 week for followup with Dr. Hernandez, repeat blood work and possible delayed cycle 3 day 1 of treatment. 5. Mitra was instructed to contact us in the interim of her appointment if she does not note any improvement in her symptoms or has worsening of her current symptoms. Electronically Signed by Lizzie Llamas NP 01/04/2019 07:03 A DD: Lizzie Llamas NP 01/03/2019 09:45 A DT: [email or web address] 01/03/2019 10:04 A CC: MD Bing Whitehead MD Daniel DeBlasio, MD Kathy Der, PANTERA Gastelum MD
[2019-01-10 08:13] VITALS: BP 119/75
[2019-01-10 08:23] LABS: HEMATOCRIT 42.9 % (36.0-47.0); HEMOGLOBIN 13.8 g/dl (12.0-15.5); LYMPH % 15.4 % (24.0-44.0); MEAN CORPUSCULAR HEMOGLOBIN 32.1 pg (27.0-33.0); MEAN CORPUSCULAR HGB CONC 32.2 g/dl (32.0-36.5); MEAN CORPUSCULAR VOLUME 99.8 fl (80.0-96.0); NEUTROPHILS # 4.1 10^3/uL (1.8-7.7); NEUTROPHILS % 75.9 % (36.0-66.0); RED BLOOD COUNT 4.3 10^6/uL (4.00-5.40); WHITE BLOOD COUNT 5.4 10^3/uL (4.0-10.0)
[2019-01-10 08:44] LABS: ALBUMIN 3.7 GM/DL (3.5-5.2); BLOOD UREA NITROGEN 11 MG/DL (6-20); CALCIUM LEVEL 9.5 MG/DL (8.5-10.2); CARBON DIOXIDE LEVEL 29 MEQ/L (23-31); CHLORIDE LEVEL 103 MMOL/L (98-107); CREATININE FOR GFR 0.97 MG/DL (0.60-1.10); GLOMERULAR FILTRATION RATE > 60.0 (>45); GLUCOSE, FASTING 130 MG/DL (70-105); SODIUM LEVEL 137 MMOL/L (135-145); TOTAL PROTEIN 6.6 GM/DL (6.4-8.3)
--- NOTE | 2019-01-10 13:13 | MEDONC ---
FOLLOW-UP VISIT DATE OF SERVICE: 01/10/2019 DIAGNOSIS: 1. Clinical stage III, [id number], ER/NH strongly positive, MMR "no loss of nuclear expression of MMR proteins"; low probability of microsatellite instability - (MSI-H), well differentiated endometrial adenocarcinoma with high-risk features diagnosed May 2018. Status post primary pelvic radiation after being deemed a nonsurgical candidate. 2. Left upper cervical/parotid lymph node hypermetabolic uptake on 07/19/2018. PET now status post biopsy showing benign tumor. The patient is essentially asymptomatic from this. TREATMENT HISTORY: EUS May 2015 complicated by bleeding. Biopsy positive for endometrial adenocarcinoma. Later outpatient pelvic exam complicated by bleeding requiring hospitalization. The patient being nonsurgical candidate. Pelvic radiation 4860 cGy 07/18/2018 through 08/29/2018. 07/19/2018 PET with mildly prominent portocaval and periportal lymph nodes, borderline hypermetabolic maximum SUV 3, and known left carotid hypermetabolic mass biopsy positive for [place]'s. TREATMENT COMPLICATIONS: Left forearm cellulitis/abscess that developed approximately 2-3 days after the patient's second cycle of chemotherapy at the previous chemotherapy IV site. Started on amoxicillin 875 mg p.o. b.i.d. on 01/03/2019 with minimal improvement upon exam today. INTERVAL HISTORY: Mitra presents today for delayed day 1 cycle three of chemotherapy utilizing carboplatin and paclitaxel. The erythematous ? abscessed area on her left forearm remains raised, hard and warm to tactile touch, measuring approximately 5 cm. This is slightly smaller in size than 1 week ago. Mitra has two amoxicillin capsules remaining. She denies any signs or symptoms of systemic infection, i.e. fevers or chills. At present, Mitra offers no other new complaints. She denies dyspnea, persistent cough, diminished appetite unintended weight loss, nausea or vomiting, diarrhea, constipation, new skeletal pain or new extremity edema. PHYSICAL EXAMINATION: Vital signs: Weight is 119.1 kg, temperature 97, pulse 82, respirations 20, BP 119/75, O2 sat 96% at rest on room air. Exam of the patient's left forearm reveals an approximate 5 cm hard erythematous raised, ? abscess without any drainage. No other suspicious rash or lesions. Remainder of physical exam deferred. LABORATORY DATA: WBC 5.4, ANC 4.1, RBC 4.30, hemoglobin and hematocrit 13.8/42.9, platelets 294. Chemistries and a CA-125 are pending. IMPRESSION: Mitra is here today for delayed day 1 cycle three of chemotherapy utilizing carboplatin and paclitaxel. Unfortunately, we have to hold her chemotherapy again today due to her left forearm infection. Mitra verbalizes understanding. PLAN: 1. Hold cycle three day 1 chemotherapy today. 2. The patient was advised to DC amoxicillin and start clindamycin 300 mg one p.o. q.i.d. x7 days. 3. The patient will leave the oncology office and go directly to [facility] to see Dr. Daniels for further evaluation and management of the patient's left arm infection. 4. Return in 1 week for follow up with Dr. Hernandez, repeat blood work and possible delayed day 1 cycle three of treatment. 5. Second request placed for referral of port placement due to the patient's poor IV access. Electronically Signed by Lizzie Llamas NP 01/11/2019 06:39 A DD: Lizzie Llamas NP 01/10/2019 09:02 A DT: [email or web address] 01/10/2019 12:55 P CC: MD Niall Whitehead MD Jocelyn Beane, MD Daniel DeBlasio, MD Kathy Der, STONEHAND Gamaliel Gastelum MD
[2019-01-31 08:33] LABS: HEMATOCRIT 42.9 % (36.0-47.0); HEMOGLOBIN 14.1 g/dl (12.0-15.5); LYMPH % 13.7 % (24.0-44.0); MEAN CORPUSCULAR HEMOGLOBIN 33.4 pg (27.0-33.0); MEAN CORPUSCULAR HGB CONC 32.9 g/dl (32.0-36.5); MEAN CORPUSCULAR VOLUME 101.6 fl (80.0-96.0); NEUTROPHILS % 77.8 % (36.0-66.0); RED BLOOD COUNT 4.22 10^6/uL (4.00-5.40); WHITE BLOOD COUNT 5.1 10^3/uL (4.0-10.0)
[2019-01-31 09:05] LABS: ALBUMIN 3.7 GM/DL (3.5-5.2); BLOOD UREA NITROGEN 17 MG/DL (6-20); CARBON DIOXIDE LEVEL 24 MEQ/L (23-31); CHLORIDE LEVEL 107 MMOL/L (98-107); CREATININE FOR GFR 0.87 MG/DL (0.60-1.10); GLOMERULAR FILTRATION RATE > 60.0 (>45); GLUCOSE, FASTING 115 MG/DL (70-105); SODIUM LEVEL 138 MMOL/L (135-145); TOTAL PROTEIN 6.8 GM/DL (6.4-8.3)
[2019-01-31 09:33] VITALS: BP 129/75
[2019-01-31 10:08] VITALS: BP 134/67
--- NOTE | 2019-01-31 10:28 | ONC.PHACK ---
CHEMO ADMIN CHECKLIST Order Contains Pt ID: Name, Order on Chemo Order Form?: Yes Order Form Includes ALL: Correct Tx Day, Correct Date, Correct Cycle Number Pt ID on Order form Matches: Pt ID on PHA Label Med on Chemo OrderForm Matches: PHA Label, Med Used for Preparation [facility] Jan 31, 2019 10:28
--- NOTE | 2019-01-31 10:33 | ONC.PHACK ---
CHEMO ADMIN CHECKLIST Order Contains Pt ID: Name, Order on Chemo Order Form?: Yes Order Form Includes ALL: Correct Tx Day, Correct Date, Correct Cycle Number Pt ID on Order form Matches: Pt ID on PHA Label Med on Chemo OrderForm Matches: PHA Label, Med Used for Preparation [facility] Jan 31, 2019 10:32
--- NOTE | 2019-02-01 07:35 | MEDONC ---
MEDICAL ONCOLOGY. FOLLOWUP / TREATMENT VISIT: DATE OF SERVICE: 01/31/2019 DIAGNOSIS: 1. Stage III, [id number] ER/MD strongly positive, dMMR negative, well differentiated endometrial adenocarcinoma with high risk features diagnosed May 2018. Status-post primary pelvic radiation now on adjuvant chemotherapy, deemed nonsurgical candidate. 2. Hypermetabolic left upper cervical / parotid lymph node 2.2 cm 07/19/2018. Pat., on biopsy benign [place]'s tumor. The patient is asymptomatic from this. CURRENT THERAPY: Carboplatin / paclitaxel every 21 days. Day one cycle one day 11/22/2018. Here for delayed day one cycle three interrupted for left arm cellulitis and port placement also delayed. TREATMENT HISTORY: See 11/03/2018 note. INTERIM HISTORY: Mitra was last seen 01/10/2019 by Lizzie Llamas when her left arm appeared very inflamed, swollen and fluctuant. She was she saw Mac Daniels shortly thereafter underwent lancing of the left arm. She has not been on and antibiotics since but his but he is now feeling much better and the left arm has only a small area of erythema. Quite firm, slightly warm, nonfluctuant. In the interval she had a MediPort placed. There was some delay in getting this scheduled as well and has not been back since. Thus a significant delay between cycles two and three chemotherapy. Labs today look good. She feels well. REVIEW OF SYSTEMS: In addition to pertinent positives and negatives above the patient denies sweats, fevers, chills, shortness of breath, cough, palpitations, nausea, vomiting, stomach pain, pain at her port site, leg swelling cramping dysuria, blood in her stool or urine. Pelvic bleeding. Remainder of 12 system review negative. PHYSICAL EXAMINATION: Weight 119 kg, temperature 96.5, blood pressure was not recorded, heart rate 74, respiratory 96. Patient is an overweight somewhat modestly well-groomed woman with obvious brawny skin changes involving her lower legs bilaterally without a significant edema. Respiratory: Clear lungs to auscultation throughout the lung [place] bilaterally. No wheezes, rales or rubs. Cardiac: S1-S2 distant heart sounds regular rate and rhythm. No murmur nor gallop. Abdomen: Bulbous soft, nontender, nondistended, no hepatosplenomegaly or mass. Extremities. No edema brawny dark Venous stasis changes with 1+ edema bilaterally symmetric. LABORATORY DATA: WBC 5.1, hemoglobin 14, hematocrit 43, platelets 218, MCV 102. Electrolytes, liver functions normal CA-125-9. IMPRESSION High-risk unresectable recurrent ER / MD positive, MMR stable endometrial carcinoma with vaginal involvement status post primary radiation now on adjuvant chemotherapy interrupted for left arm cellulitis now status post antibiotics and MediPort placement. Clinically stable, ready to begin cycle three. PLAN 1. Cycle three today. 2. Return to clinic 3 weeks for cycle four. 3. I counseled Mitra simms to seek immediate medical attention should her left arm erythema increase. Electronically Signed by Sofiya Hernandez MD 02/01/2019 06:40 P DD: Sofiya Hernandez MD 01/31/2019 10:01 A DT: lea 02/01/2019 07:24 A CC: MD Bing Whitehead MD Daniel A. Bryden, DO Kathy Der, COST SPECIALIST
[2019-02-21 07:53] LABS: HEMATOCRIT 40.3 % (36.0-47.0); HEMOGLOBIN 13.4 g/dl (12.0-15.5); MEAN CORPUSCULAR HEMOGLOBIN 33.4 pg (27.0-33.0); MEAN CORPUSCULAR HGB CONC 33.3 g/dl (32.0-36.5); MEAN CORPUSCULAR VOLUME 100.4 fl (80.0-96.0); NEUTROPHILS # 3.3 10^3/uL (1.8-7.7); NEUTROPHILS % 74.1 % (36.0-66.0); RED BLOOD COUNT 4.01 10^6/uL (4.00-5.40); WHITE BLOOD COUNT 4.5 10^3/uL (4.0-10.0)
[2019-02-21 07:54] VITALS: BP 117/71
[2019-02-21 08:18] LABS: ALBUMIN 3.6 GM/DL (3.5-5.2); BLOOD UREA NITROGEN 14 MG/DL (6-20); CARBON DIOXIDE LEVEL 24 MEQ/L (23-31); CHLORIDE LEVEL 104 MMOL/L (98-107); CREATININE FOR GFR 0.94 MG/DL (0.60-1.10); GLOMERULAR FILTRATION RATE > 60.0 (>45); GLUCOSE, FASTING 116 MG/DL (70-105); SODIUM LEVEL 137 MMOL/L (135-145); TOTAL PROTEIN 6.7 GM/DL (6.4-8.3)
--- NOTE | 2019-02-21 09:02 | ONC.PHACK ---
CHEMO ADMIN CHECKLIST Order Contains Pt ID: Name, Order on Chemo Order Form?: Yes Order Form Includes ALL: Correct Tx Day, Correct Date, Correct Cycle Number Pt ID on Order form Matches: Pt ID on PHA Label Med on Chemo OrderForm Matches: PHA Label, Med Used for Preparation [facility] Feb 21, 2019 09:02
--- NOTE | 2019-02-22 07:40 | MEDONC ---
MEDICAL ONCOLOGY FOLLOWUP TREATMENT VISIT: DATE OF SERVICE: 02/21/2019 DIAGNOSES: 1. Stage III, T3 N2 M0 G1, ER/HI strongly positive, dMMR negative, well differentiated endometrial adenocarcinoma with high-risk features diagnosed May 2018. Status post primary pelvic radiation, now on adjuvant chemotherapy, deemed a nonsurgical candidate. 2. Hypermetabolic left upper cervical/parotid lymph node 2.2 cm 07/19/2018. Pathology on biopsy benign [place] tumor. The patient remains asymptomatic from this. CURRENT THERAPY: Carboplatin/paclitaxel every 21 days. Day 1 cycle one 11/22/2018. Here for day 1 cycle four. TREATMENT HISTORY: Please see 11/03/2018 note. INTERIM HISTORY: Mitra presents today for day 1 cycle four of treatment. As previously documented, day 1 cycle three was delayed/interrupted for a left arm cellulitis and port placement. The cellulitis in her left arm has completely resolved following lancing and antibiotics. In the interval, she had a MediPort placed. At present, Mitra claims to feel well. ECOG performance status is 0. REVIEW OF SYSTEMS: 12-system review completed and is negative for headaches, visual disturbance, dyspnea, cough, fevers or chills, lumps or bumps, palpitations, nausea, vomiting, abdominal pain, leg swelling or cramping, dysuria, nausea or vomiting, blood in her stool or urine. Pelvic bleeding. Remainder of 12-system review is negative. PHYSICAL EXAMINATION: Weight is 119.6 kg, temperature 96, pulse 80, respirations 18, BP 117/71, O2 sat 97% at rest on room air. General: Exam reveals a pleasant overweight woman who is comfortable and in no acute distress. HEENT: No scleral icterus. Oral pharynx, oral mucous membranes normal. Conjunctivae normal. No thyroid enlargement or nodule. No jugular venous distention. Neck supple. Carotid upstrokes 1+, no bruits. Fundi normal bilaterally. RESPIRATORY: Lungs clear bilaterally to auscultation and percussion. No rales, rhonchi, or wheezing. CARDIOVASCULAR: PMI 5th left intercostal space, midline. S1, S2 normal. No S3, S4 or murmurs. Regular rhythm. Femoral, dorsalis pedis pulses 2+ bilaterally. LYMPHATICS: No palpable lymphadenopathy. ABDOMEN: Bulbous soft, nontender, nondistended. No hepatosplenomegaly or mass. RECTAL: No masses or tenderness. Stool brown color. GENITOURINARY: Pelvic exam deferred - not applicable. MUSCULOSKELETAL: No focal skeletal tenderness to percussion. No joint swelling, warmth, tenderness, or erythema. SKIN: No rash, ecchymosis, or petechiae. Normal turgor. EXTREMITIES: No edema. Brawny dark venous stasis changes. LABORATORY DATA: WBC 4.5, ANC 3.3, RBC 4.01, hemoglobin and hematocrit 13.4/40.3, platelets 216. Chemistries are unremarkable with the exception of a nonfasting glucose of 116. A current CA-125 antigen is pending. Mitra is most recent tumor marker from 01/31/2019 was within normal parameters. IMPRESSION: High-risk unresectable recurrent ER/HI positive, MMR stable endometrial carcinoma with vaginal involvement, status post primary radiation, now on adjuvant chemotherapy, here today for day 1 cycle four. Day 1 cycle three delayed/interrupted for left arm cellulitis, now resolved and MediPort placement. Mitra is doing well. Offers no specific complaints today. PLAN: 1. Day 1 cycle four today. 2. Return to clinic in 3 weeks for day 1 cycle number five. Electronically Signed by Lizzie Llamas NP 02/23/2019 06:52 A DD: Lizzie Llamas NP 02/21/2019 08:28 A DT: [email or web address] 02/22/2019 07:17 A CC: MD Bing Whitehead MD Daniel A. Bryden, DO Kathy Der, FNP
[2019-03-14 07:54] VITALS: BP 114/75
[2019-03-14 08:08] LABS: HEMATOCRIT 39.4 % (36.0-47.0); HEMOGLOBIN 12.8 g/dl (12.0-15.5); LYMPH % 15.8 % (24.0-44.0); MEAN CORPUSCULAR HEMOGLOBIN 33.2 pg (27.0-33.0); MEAN CORPUSCULAR HGB CONC 32.5 g/dl (32.0-36.5); NEUTROPHILS # 4.1 10^3/uL (1.8-7.7); NEUTROPHILS % 76.6 % (36.0-66.0); RED BLOOD COUNT 3.86 10^6/uL (4.00-5.40); WHITE BLOOD COUNT 5.3 10^3/uL (4.0-10.0)
[2019-03-14 08:46] LABS: ALBUMIN 3.4 GM/DL (3.5-5.2); BLOOD UREA NITROGEN 15 MG/DL (6-20); CARBON DIOXIDE LEVEL 26 MEQ/L (23-31); CHLORIDE LEVEL 103 MMOL/L (98-107); CREATININE FOR GFR 0.76 MG/DL (0.60-1.10); GLOMERULAR FILTRATION RATE > 60.0 (>45); GLUCOSE, FASTING 129 MG/DL (70-105); SODIUM LEVEL 136 MMOL/L (135-145); TOTAL PROTEIN 6.6 GM/DL (6.4-8.3)
--- NOTE | 2019-03-14 08:59 | ONC.PHACK ---
CHEMO ADMIN CHECKLIST Order Contains Pt ID: Name, Order on Chemo Order Form?: Yes Order Form Includes ALL: Correct Tx Day, Correct Date, Correct Cycle Number Pt ID on Order form Matches: Pt ID on PHA Label Med on Chemo OrderForm Matches: PHA Label, Med Used for Preparation [facility] Mar 14, 2019 08:58
--- NOTE | 2019-03-15 08:57 | MEDONC ---
MEDICAL ONCOLOGY FOLLOWUP/TREATMENT VISIT: DATE OF SERVICE: 03/14/2019 DIAGNOSES: 1. Stage III, T3, N2, M0, G1, ER/DC strongly positive, MMR negative, well differentiated endometrial adenocarcinoma with high-risk features diagnosed May 2018. Status post primary pelvic radiation, now on adjuvant chemotherapy, deemed a nonsurgical candidate. 2. Hypermetabolic left upper cervical/parotid lymph node 2.2 cm 07/19/2018. Pathology on biopsy benign. The patient remains asymptomatic from this. CURRENT THERAPY: carboplatin/paclitaxel every 21 days. Day 1, cycle one 11/22/2018. Here for day 1 cycle #5 today. TREATMENT HISTORY: Please see 11/03/2018 note. INTERIM HISTORY: Mitra presents today for day 1 cycle #5 of treatment. The cellulitis in her left arm has completely resolved following lancing and antibiotics. At present, Mitra claims to feel well and offers no specific complaints. ECOG performance status is 0. REVIEW OF SYSTEMS: 12-system review completed and is negative for headaches, visual disturbance, dyspnea, cough, fevers or chills, new lumps or bumps, palpitations, nausea, vomiting, diarrhea, constipation, abdominal pain, leg swelling or cramping, dysuria blood in stool or urine. No pelvic bleeding. Remainder of 12-system review is negative. PHYSICAL EXAMINATION: Weight is 120 kg, temperature 96, pulse 81, respirations 18, BP 114/75, O2 sat 96% at rest on room air. GENERAL: Exam reveals a pleasant overweight female who is comfortable and in no acute distress. HEENT: No scleral icterus. Oral pharynx, oral mucous membranes normal. Conjunctivae normal. No thyroid enlargement or nodule. No jugular venous distention. Neck supple. Carotid upstrokes 1+, no bruits. Fundi normal bilaterally. RESPIRATORY: Lungs clear bilaterally to auscultation and percussion. No rales, rhonchi, or wheezing. CARDIOVASCULAR: PMI 5th left intercostal space, midline. S1, S2 normal. No S3, S4 or murmurs. Regular rhythm. Femoral, dorsalis pedis pulses 2+ bilaterally. LYMPHATICS: No palpable lymphadenopathy. ABDOMEN: Soft, nontender. Bowel sounds normal. No tenderness, guarding, or rebound. No palpable masses or hepatosplenomegaly. MUSCULOSKELETAL: No focal skeletal tenderness to percussion. No joint swelling, warmth, tenderness, or erythema. EXTREMITIES: Without edema. Once again brawny dark venous stasis is noted in the lower extremities bilaterally. LABORATORY DATA: WBC 5.3, ANC 7.6, RBC 3.86, hemoglobin and hematocrit 12.8, 39.4, platelets 194. Chemistries and a CA-125 are pending as of this dictation. IMPRESSION: High-risk unresectable recurrent ER/DC positive, MMR stable endometrial carcinoma with vaginal involvement, status post primary radiation, now on adjuvant chemotherapy, here today for day 1, cycle five. Mitra is tolerating her treatment well. Offers no specific complaints today. PLAN: 1. Day 1, cycle #5 today. 2. Return to clinic in 3 weeks for day 1, cycle #6. At that time, we will schedule restaging scans following Mitra's sixth treatment. Electronically Signed by Lizzie Llamas NP 03/16/2019 06:42 A DD: Lizzie Llamas NP 03/14/2019 08:19 A DT: [email or web address] 03/15/2019 08:50 A CC: MD Bing Whitehead MD Daniel A. Bryden, DO Kathy Der, FNP
--- NOTE | 2019-04-03 20:39 | ONC.PHACK ---
CHEMO ADMIN CHECKLIST Order Contains Pt ID: Name, Order on Chemo Order Form?: Yes Order Form Includes ALL: Correct Tx Day, Correct Date, Correct Cycle Number Pt ID on Order form Matches: Pt ID on PHA Label Med on Chemo OrderForm Matches: PHA Label, Med Used for Preparation [facility] Apr 03, 2019 20:39
[2019-04-04 08:34] VITALS: BP 116/74
[2019-04-04 08:47] LABS: BASO % 0.6 % (0.0-1.0); EOS # 0.1 10^3/uL (0.0-0.50); EOS % 2.9 % (0.0-3.0); HEMATOCRIT 36.3 % (36.0-47.0); HEMOGLOBIN 11.8 g/dl (12.0-15.5); LYMPH # 0.4 10^3/uL (1.5-4.5); LYMPH % 7.8 % (24.0-44.0); MEAN CORPUSCULAR HEMOGLOBIN 33.5 pg (27.0-33.0); MEAN CORPUSCULAR HGB CONC 32.5 g/dl (32.0-36.5); MEAN CORPUSCULAR VOLUME 103.1 fl (80.0-96.0); MONO # 0.5 10^3/uL (0.0-0.8); MONO % 10.7 % (0.0-5.0); NEUTROPHILS # 3.7 10^3/uL (1.8-7.7); NEUTROPHILS % 77.2 % (36.0-66.0); PLATELET COUNT, AUTOMATED 241 10^3/uL (150-450); RED BLOOD COUNT 3.52 10^6/uL (4.00-5.40); WHITE BLOOD COUNT 4.8 10^3/uL (4.0-10.0)
[2019-04-04 09:12] LABS: ALBUMIN 2.8 GM/DL (3.2-5.2); ALT/SGPT 30 U/L (12-78); BILIRUBIN,TOTAL 0.4 MG/DL (0.2-1.0); BLOOD UREA NITROGEN 15 MG/DL (7-18); CALCIUM LEVEL 8.7 MG/DL (8.8-10.2); CARBON DIOXIDE LEVEL 27 MEQ/L (21-32); CHLORIDE LEVEL 107 MEQ/L (98-107); CREATININE FOR GFR 0.72 MG/DL (0.55-1.30); GLOMERULAR FILTRATION RATE > 60.0 (>45); GLUCOSE, FASTING 107 MG/DL (70-100); SODIUM LEVEL 141 MEQ/L (136-145); TOTAL PROTEIN 6.8 GM/DL (6.4-8.2)
--- NOTE | 2019-04-05 16:19 | MEDONC ---
MEDICAL ONCOLOGY FOLLOWUP / TREATMENT VISIT: DATE OF SERVICE: 04/04/2019 DIAGNOSIS: 1. Stage III, T3N2M0, G1 ER positive, MMR negative, well differentiated endometrial adenocarcinoma with high-risk features diagnosed May 2018. Status post primary pelvic radiation, now on adjuvant chemotherapy, deemed a nonsurgical candidate. 2. Hypermetabolic left upper cervical parotid lymph node 2.2 cm on 07/19/2018. Pathology on biopsy benign. The patient remains asymptomatic from this. CURRENT THERAPY: Carboplatin / paclitaxel every 21 days. Day one cycle one 11/22/2018. Here for day one cycle six today. TREATMENT HISTORY: Please see 11/03/2018 note. INTERIM HISTORY: Mitra presents today for day one cycle #6 of treatment. At present, she claims to feel well and offers no new specific complaints. ECOG performance status is zero. REVIEW OF SYSTEMS: 12 system review completed and is negative for headaches, visual disturbance, dyspnea, cough, fevers or chills, new lumps or bumps, rashes, chest pain, palpitations, nausea, vomiting, diarrhea, constipation, abdominal pain, new leg swelling or cramping, dysuria blood in stool or urine. No pelvic bleeding. Remainder of 12 system review is negative. PHYSICAL EXAMINATION: Weight is 119.9 kg, temperature 96.8, pulse 94, respirations 18, BP 116/74, O2 sat 98% at rest on room air. General: Exam reveals a pleasant overweight white female who is comfortable and in no acute distress. HEENT: No scleral icterus. Oral pharynx, oral mucous membranes normal. Conjunctivae normal. No thyroid enlargement or nodule. No jugular venous distention. Neck supple. Carotid upstrokes 1+; no bruits. Fundi normal bilaterally. RESPIRATORY: Lungs clear bilaterally to auscultation and percussion. No rales, rhonchi, or wheezing. CARDIOVASCULAR: PMI 5th left intercostal space, midline. S1, S2 normal. No S3, S4, or murmurs. Regular rhythm. Femoral, dorsalis pedis pulses 2+ bilaterally. LYMPHATICS: No palpable lymphadenopathy. ABDOMEN: Soft, nontender. Bowel sounds normal. No tenderness, guarding, or rebound. No palpable masses or hepatosplenomegaly. MUSCULOSKELETAL: No focal skeletal tenderness to percussion. No joint swelling, warmth, tenderness, or erythema. SKIN: No rash, ecchymosis, or petechiae. Normal turgor. EXTREMITIES: Positive once again for dark brawny venous stasis changes bilaterally. LABORATORY DATA: WBC 4.8 ANC 3.7, RBC 3.52, H and H 11.8, 36.3 platelets 241. Chemistries are pending as of this dictation. Also pending is a current CA-125 antigen. To date, Mitra's tumor markers have been normal. IMPRESSION: High-risk unresectable recurrent ER HI positive, MMR stable endometrial carcinoma with vaginal involvement, status post primary radiation, now on adjuvant chemotherapy, here today for day one cycle six. Mitra is tolerating her treatment well. No new complaints today. PLAN: 1. Day one cycle #6 today. 2. Current restaging CT scans of the chest, abdomen and pelvis with by mouth and IV contrast following today's treatment. 3. Return following restaging scans to review those results with Dr. Hernandez and for further decision making. Mitra is in agreement with our plan and knows to contact this office in the interim of her appointment with any new symptoms, questions or problems. Electronically Signed by Lizzie Llamas NP 04/06/2019 06:52 A DD: Lizzie Llamas NP 04/04/2019 08:51 A DT: [email or web address] 04/05/2019 03:58 P CC: MD Bing Whitehead MD Daniel A. Bryden, DO Kathy Der, [employer]
[~2019-04-17] VITALS: Ht 162.6 cm; Wt 117.0 kg
[~2019-04-17 07:49] MED LIST changes: +ACETAMINOPHEN 650 MG PO PO ONE; +CARBOPLATIN IV ONE; -EMLA CREAM 5GM (LIDOCAINE/PRILOCAINE) As Ordered ONE; +FAMOTIDINE 20 MG IV IV ONE; +FOSAPREPITANT PERIPHERAL LINE 30 MIN INFUSION (PREMIX) IV ONE; -GASTROGRAFIN SOLUTION 30ML (Q9963) As Ordered ONE; -ISOVUE-370 76% 100ML VIAL (Q9967) As Ordered ONE; +NS IV ONE; +PACLITAXEL IV ONE; +PALONOSETRON 250 MCG IV IV ONE; +PEGFILGRASTIM 6 MG/0.6ML SYR (NEULASTA) (J2505 PER 6MG) SC ONE; +PEGFILGRASTIM 6MG/0.6ML ONPRO KIT (J2505 PER 6MG) (FOR ONCOLOGY) SC ONE; +SODIUM CHLORIDE 0.9% INJ 10 ML SYR IV PRN; +dexameTHASONE 10 MG IV IV ONE; +diphenhydrAMINE 50 MG IV IV ONE
[2019-04-17] MEDS ORDERED: SODIUM CHLORIDE 0.9% INJ 10 ML SYR IV PRN (08:00)
[2019-04-17 08:03] VITALS: BP 118/76
[2019-04-17 08:59] LABS: HEMATOCRIT 35.5 % (36.0-47.0); HEMOGLOBIN 11.4 g/dl (12.0-15.5); LYMPH % 7.7 % (24.0-44.0); MEAN CORPUSCULAR HGB CONC 32.1 g/dl (32.0-36.5); MEAN CORPUSCULAR VOLUME 105.9 fl (80.0-96.0); NEUTROPHILS # 7.4 10^3/uL (1.8-7.7); NEUTROPHILS % 87.9 % (36.0-66.0); RED BLOOD COUNT 3.35 10^6/uL (4.00-5.40); WHITE BLOOD COUNT 8.4 10^3/uL (4.0-10.0)
[2019-04-17 09:14] LABS: ALBUMIN 3.6 GM/DL (3.5-5.2); BLOOD UREA NITROGEN 15 MG/DL (6-20); CARBON DIOXIDE LEVEL 27 MEQ/L (23-31); CHLORIDE LEVEL 105 MMOL/L (98-107); CREATININE FOR GFR 0.92 MG/DL (0.60-1.10); GLOMERULAR FILTRATION RATE > 60.0 (>45); GLUCOSE, FASTING 185 MG/DL (70-105); SODIUM LEVEL 139 MMOL/L (135-145); TOTAL PROTEIN 6.6 GM/DL (6.4-8.3)
--- NOTE | 2019-04-17 16:04 | MEDONC ---
MEDICAL ONCOLOGY FOLLOWUP VISIT DATE OF SERVICE: 04/17/2019 DIAGNOSES: 1. Stage III, T3N2M0, grade 1, ER positive, MMR negative, well differentiated endometrial adenocarcinoma with high-risk features diagnosed May of 2018. Status post primary pelvic radiation, status post six cycles of carboplatin/paclitaxel, last cycle given on 04/04/2019. Deemed not a surgical candidate. 2. Hypermetabolic left upper cervical parotid lymph node 2.2 cm on 07/19/2018. Pathology on biopsy benign. The patient remains asymptomatic from this. RECENT TREATMENT THERAPY: Carboplatin/paclitaxel every 21 days. Day one cycle one 11/22/2018. Day one cycle six 04/04/2019. PREVIOUS TREATMENT: Please see 11/03/2018 note. INTERVAL HISTORY: Mitra presents today for a scheduled followup visit. At present, she claims to feel well and offers no new specific complaints. ECOG performance status is 0. REVIEW OF SYSTEMS: 12 system review completed and is negative for headaches, visual disturbance, dyspnea, cough, fevers or chills, new lumps or bumps, rashes, chest pain, palpitations, nausea, vomiting, diarrhea, constipation, abdominal pain, new leg swelling or cramping, dysuria, blood in stool or urine. No pelvic bleeding. Remainder of 12 system review is negative. PHYSICAL EXAMINATION: Weight is 117 kg. Temperature 96.7, pulse 102, respirations 20, BP 118/76, oxygen saturation 98% at rest on room air. GENERAL: Exam reveals a pleasant, overweight white female who is comfortable and in no acute distress. HEENT: No scleral icterus. Oral pharynx, oral mucous membranes normal. Conjunctivae normal. No thyroid enlargement or nodule. No jugular venous distention. Neck supple. Carotid upstrokes 1+; no bruits. Fundi normal bilaterally. RESPIRATORY: Lungs clear bilaterally to auscultation and percussion. No rales, rhonchi, or wheezing. CARDIOVASCULAR: PMI 5th left intercostal space, midline. S1, S2 normal. No S3, S4, or murmurs. Regular rhythm. Femoral, dorsalis pedis pulses 2+ bilaterally. LYMPHATICS: No palpable lymphadenopathy. ABDOMEN: Soft, nontender. Bowel sounds normal. No tenderness, guarding, or rebound. No palpable masses or hepatosplenomegaly. MUSCULOSKELETAL: No focal skeletal tenderness to percussion. No joint swelling, warmth, tenderness, or erythema. SKIN: No rash, ecchymosis, or petechiae. Normal turgor. EXTREMITIES: Positive once again for dark brawny venous stasis changes bilaterally. LABORATORY DATA: WBC today 8.4, ANC 7.4, RBC 3.35, H/H 11.4/35.5, platelets 111. Chemistries are pending as of this dictation. A current CA-125 antigen is also pending. Imaging studies from 04/12/[address] of the chest, abdomen and pelvis are negative for evidence of acute pathology or evidence of metastatic disease. CT of the abdomen and pelvis does show mildly prominent heterogeneous appearance to the fundal portion of the uterus and adjacent adnexa similar to prior examinations which is nonspecific. IMPRESSION: Results of mitra's most recent CT imaging were reviewed with her to her understanding. She is pleased with the results. At this time, Mitra is enjoying a good quality of life. ECOG performance status is 0. PLAN: 1. Continue monthly port flushes. 2. Return in June for a followup office visit with a restaging PET CT scan and blood work done 1 week prior. Mitra knows to contact us in the interim of her appointment with any new symptoms, questions or problems. Electronically Signed by Lizzie Llamas NP 04/18/2019 06:57 A DD: Lizzie Llamas NP 04/17/2019 12:22 P DT: [email or web address] 04/17/2019 03:55 P CC: MD Bing Whitehead MD Daniel A. Bryden, DO Kathy Der, FNP
[2019-05-17] MEDS ORDERED: SODIUM CHLORIDE 0.9% INJ 10 ML SYR IV PRN (08:00)
[2019-06-12] MEDS ORDERED: SODIUM CHLORIDE 0.9% INJ 10 ML SYR IV PRN (08:00)
== END 2019-04-17 08:00 | disposition home or self-care (01) ==
LOC: M ONCM 07:49
PROVIDERS: ATTEND Internal Medicine Medical Oncology
DX: C54.1 Malignant neoplasm of endometrium (principal); D61.810 Antineoplastic chemotherapy induced pancytopenia; Z79.899 Other long term (current) drug therapy; L02.414 Cutaneous abscess of left upper limb
CPT/HCPCS: 36415; 36591; 80053; 85027; 85610; 85730; 86304; 96367; 96368; 96372; 96375; 96377; 96413; 96415; 96417; G0463; J1100; J1200; J1453; J1642; J2469; J2505; J9045; J9267